=== PATIENT | male | born 1975 | race Caucasian/White ===

== ENCOUNTER 2018-12-12 07:04 | Emergency (ER) | payer MEDICAID, OTHER ==
[~2018-12-12] VITALS: Ht 165.1 cm; Wt 75.0 kg
[2018-12-12 07:09] VITALS: BP 111/63
== END 2018-12-12 09:58 | disposition home or self-care (01) ==
LOC: ED 09:15
DX: S93.402A Sprain of unspecified ligament of left ankle, initial encounter (principal); S93.602A Unspecified sprain of left foot, initial encounter; Z87.891 Personal history of nicotine dependence; X50.1XXA Overexertion from prolonged static or awkward postures, initial encounter; Y93.89 Activity, other specified; Y92.410 Unspecified street and highway as the place of occurrence of the external cause; Y99.8 Other external cause status
CPT/HCPCS: 99283

== ENCOUNTER 2018-12-16 17:35 | Emergency (ER) | payer MEDICAID ==
[~2018-12-16] VITALS: Ht 165.1 cm; Wt 79.5 kg
[2018-12-16 20:46] VITALS: BP 116/82
== END 2018-12-16 20:48 | disposition home or self-care (01) ==
LOC: ED 18:20
DX: I87.2 Venous insufficiency (chronic) (peripheral) (principal); M25.572 Pain in left ankle and joints of left foot; R60.0 Localized edema; Z87.891 Personal history of nicotine dependence
CPT/HCPCS: 36415; 71045; 80053; 83880; 85025; 93005; 99284